=== PATIENT | male | born 1945 | race American Indian/Alaskan Native ===

== ENCOUNTER 2017-07-05 06:50 | Emergency (ER) | payer MEDICARE ==
[2017-07-05] MEDS ORDERED: NACL 0.9% 1000 ML 1,000 ML ONE (07:09)
[2017-07-05] MEDS ORDERED: NACL 0.9% 1000 ML 1,000 ML IV ONE ×3 (07:17→10:09)
[2017-07-05] MEDS ORDERED: CARDIZEM/D5W 100MG/100ML 100 MG/100 ML BAG IV ONE (07:18)
[2017-07-05] MEDS ORDERED: CARDIZEM IV ONE (07:18)
--- NOTE | 2017-07-05 07:24 | Emergency Department Report ---
ED General Adult HPI - General Chief complaint: Weakness Stated complaint: AMS Time Seen by Provider: 07/05/17 07:16 Source: patient Mode of arrival: Stretcher Limitations: No Limitations - History of Present Illness Initial comments: Patient is 71 years old -[place] male brought into the ER via EMS with symptoms of generalized weakness and palpitation. Patient stated that symptoms started this morning. EMS reported that initial blood pressure was 80/55, he was given 1 L of fluids by EMS his blood pressure went to 112/60. EKG in the ER showed SVT was a heart rate of 155. Patient was given adenosine with transient response heart rate go down to 90s and some back again to 150. Patient was recently discharged from [facility] for acute pancreatitis. Patient does have a baked tube in place. He denied any fever or vomiting. -: This morning - Related Data Home Medications Medication Instructions Recorded Confirmed Last Taken HYDROcodone/APAP 5-325 [Marion 1 each PO Q4HR PRN 07/05/17 07/05/17 07/04/17 5/325] Lipase/Protease/Amylase [Zenpep Dr 1 each PO TIDWM 07/05/17 07/05/17 07/04/17 25,000 Units Capsule] Metoprolol [Lopressor] 25 mg PO Q12H 07/05/17 07/05/17 07/04/17 Omeprazole 40 mg PO QDAY 07/05/17 07/05/17 07/04/17 traMADol [Ultram] 50 mg PO Q6HR PRN 07/05/17 07/05/17 07/04/17 Allergies Allergy/AdvReac Type Severity Reaction Status Date / Time No Known Allergies Allergy Verified 07/05/17 07:18 ED Review of Systems ROS: Stated complaint: AMS Other details as noted in HPI Comment: All other systems reviewed and negative Constitutional: denies: chills, fever Respiratory: denies: cough, orthopnea, shortness of breath, SOB with exertion Cardiovascular: palpitations. denies: chest pain, dyspnea on exertion Gastrointestinal: abdominal pain. denies: nausea, vomiting, diarrhea, constipation Musculoskeletal: denies: back pain Neurological: weakness (generalized weakness). denies: headache, numbness, paresthesias, confusion ED Past Medical Hx - Past Medical History Previous Medical History?: Yes Additional medical history: pancreatitis - Surgical History Past Surgical History?: Yes Additional Surgical History: G-tube placement - Social History Smoking Status: Former Smoker Substance Use Type: None - Medications Home Medications: Home Medications Medication Instructions Recorded Confirmed Last Taken Type HYDROcodone/APAP 5-325 [Marion 1 each PO Q4HR PRN 07/05/17 07/05/17 07/04/17 History 5/325] Lipase/Protease/Amylase [Zenpep Dr 1 each PO TIDWM 07/05/17 07/05/17 07/04/17 History 25,000 Units Capsule] Metoprolol [Lopressor] 25 mg PO Q12H 07/05/17 07/05/17 07/04/17 History Omeprazole 40 mg PO QDAY 07/05/17 07/05/17 07/04/17 History traMADol [Ultram] 50 mg PO Q6HR PRN 07/05/17 07/05/17 07/04/17 History ED Physical Exam - General Limitations: No Limitations General appearance: alert, in distress - Head Head exam: Present: atraumatic, normocephalic, normal inspection - Eye Eye exam: Present: normal appearance, PERRL - ENT ENT exam: Present: mucous membranes dry - Neck Neck exam: Present: normal inspection, full ROM. Absent: tenderness, meningismus, lymphadenopathy - Respiratory Respiratory exam: Present: normal lung sounds bilaterally - Cardiovascular Cardiovascular Exam: Present: tachycardia. Absent: systolic murmur, diastolic murmur - GI/Abdominal GI/Abdominal exam: Present: tenderness, guarding, rigid - Extremities Exam Extremities exam: Present: normal inspection. Absent: pedal edema - Back Exam Back exam: Present: normal inspection. Absent: CVA tenderness (R), CVA tenderness (L) - Neurological Exam Neurological exam: Present: alert, oriented X3, CN II-XII intact, reflexes normal. Absent: motor sensory deficit - Skin Skin exam: Present: warm, dry, intact ED Course Vital Signs 07/05/17 07/05/17 07/05/17 07:04 08:15 08:30 Temperature 98.1 F Pulse Rate 150 H 134 H 134 H Respiratory 18 24 34 H Rate Blood Pressure 103/58 134/111 O2 Sat by Pulse 99 100 100 Oximetry 07/05/17 07/05/17 07/05/17 08:46 08:52 09:24 Temperature Pulse Rate 132 H 143 H 138 H Respiratory 17 27 H Rate Blood Pressure 111/77 116/72 O2 Sat by Pulse 100 Oximetry 07/05/17 07/05/17 07/05/17 09:30 09:45 10:00 Temperature Pulse Rate 138 H 136 H 136 H Respiratory 30 H 28 H 26 H Rate Blood Pressure 96/59 100/61 100/61 O2 Sat by Pulse Oximetry 07/05/17 07/05/17 07/05/17 10:15 10:30 11:44 Temperature Pulse Rate 135 H 135 H 135 H Respiratory 28 H 26 H 30 H Rate Blood Pressure 94/60 94/60 94/59 O2 Sat by Pulse Oximetry 07/05/17 07/05/17 07/05/17 11:45 12:00 12:15 Temperature Pulse Rate 139 H 134 H 131 H Respiratory 31 H 45 H 28 H Rate Blood Pressure 92/46 92/46 87/55 O2 Sat by Pulse 96 Oximetry 07/05/17 07/05/17 07/05/17 12:30 12:45 13:00 Temperature Pulse Rate 132 H 134 H 136 H Respiratory 32 H 33 H 35 H Rate Blood Pressure 87/55 95/55 95/55 O2 Sat by Pulse 97 100 98 Oximetry 07/05/17 07/05/17 07/05/17 13:24 13:30 13:45 Temperature Pulse Rate 133 H 133 H 134 H Respiratory 36 H 42 H 36 H Rate Blood Pressure 81/54 93/63 O2 Sat by Pulse 97 98 98 Oximetry 07/05/17 07/05/17 07/05/17 14:00 14:16 14:30 Temperature Pulse Rate 135 H 139 H 138 H Respiratory 35 H 35 H 45 H Rate Blood Pressure 106/64 98/54 80/46 O2 Sat by Pulse 99 98 Oximetry 07/05/17 07/05/17 07/05/17 14:45 15:00 15:15 Temperature Pulse Rate 131 H 135 H 135 H Respiratory 44 H 38 H 35 H Rate Blood Pressure 79/46 96/53 106/65 O2 Sat by Pulse Oximetry 07/05/17 07/05/17 07/05/17 15:30 15:45 16:00 Temperature Pulse Rate 137 H 140 H 138 H Respiratory 33 H 34 H 45 H Rate Blood Pressure 99/57 95/56 85/46 O2 Sat by Pulse 88 Oximetry 07/05/17 16:15 Temperature Pulse Rate 139 H Respiratory 33 H Rate Blood Pressure 94/51 O2 Sat by Pulse 85 Oximetry - Reevaluation(s) Reevaluation #1: 07/05/17 07/05/17 13:35 Patient stated that he is feeling better but patient is still tachycardic, IV fluids still running. Patient received Zosyn. Reevaluation #2: 07/05/17 14:20 Patient is alert oriented 3 still tachycardic. Central line placed patient is getting Levophed and IV fluid. Reevaluation #3: 07/05/17 15:37 Patient stated that he is feeling much better, blood pressure improved. I discussed with Dr. Cuellar from [facility], he accepted the patient to be transferred to [facility]. 07/05/17 16:10 Reevaluation #4: 07/05/17 15:45 I discussed with the family the current condition of the patient and how critical it is his finding and he needs to transfer to [facility]. Patient family understand and agree to transfer patient. Reevaluation #5: 07/05/17 16:39 Discussed patient with Olive Rooney, noticed practitioner with Dr. Noel Kc inform about the patient and the possible need for emergent ERCP. She stated that she will call Dr. Noel Kc and she will call me back. - Central Line Placement Right Femoral Consent Obtained: emergent situation Time Out Performed: Yes Patient Placed on Monitor/Pulse Ox: Yes Prep: mask, gown, gloves Central Line Prep: Povidone-Iodine 1%, Chlorhexidine scrub, sterile drapes applied Local Anesthesia Used: Lidocaine 2% Amount of Anesthesia Used (mls): 5 Central Line Lumen Inserted: triple Bloods Obtained for Lab: Yes Central Line Position: good blood return, all ports aspirated, flus, sutured in place with 2-0 Dressing Applied: Tegaderm, sterile gauze/tape Patient Tolerated Procedure: well, no complications Complications: none - Intubation Time Out Performed: Yes Sedative: Etomidate Mg Given: 10 Paralytic: Succinylcholine Mg Given: 50 Laryngoscope: Tamiko Size: 4 ET Tube Size: 7.5 Tube Secured Depth (cm): 22 Tube Secured Location: lips Tube Placement Confirmation: visualized tube passing t, equal breath sounds bilat, no breath sounds over epi, confirmation by capnometr Patient Tolerated Procedure: well, no complications Intubation Complications: none ED Medical Decision Making - Lab Data Result diagrams: 07/05/17 09:10 07/05/17 09:10 - Medical Decision Making Discussed with Dr. Miller from [facility], he accepted the patient to be transferred to ICU. I am waiting for the ICU doctor to call me to discuss the patient with him. Discussed with Dr. hammond from [facility] he stated that he cannot accept the patient now because he does not have any bed at this moment. Patient started to have more difficulty breathing and his respiratory rate jumped to canine breath per minute. Patient stated that he is feeling tired and fatigued. So decision to intubate the patient is admitted. Patient intubated by me. Discussed with Dr. Rahman, he agreed to admit the patient to his service to a critical care bed. Critical Care Time: Yes Critical care time in (mins) excluding proc time.: 90 Critical care attestation.: If time is entered above; I have spent that time in minutes in the direct care of this critically ill patient, excluding procedure time. ED Disposition Clinical Impression: Septic shock, Abdominal pain, Pancreatic mass, Common bile duct (CBD) obstruction, Acute respiratory failure Disposition: DC/TX-70 ANOTHER TYPE HLTHCARE Is pt being admited?: No Condition: Stable Referrals: MCKINLEY ARAGON MD [Primary Care Provider] - 3-5 Days
--- NOTE | 2017-07-05 08:05 | XRay Report ---
PORTABLE CHEST INDICATION: Chest pain. COMPARISON: None similar at this institution. FINDINGS: Portable, frontal chest radiograph suggests prominent/mild increased markings at both lung bases and some in the right midlung zone, possibly crowding/atelectasis and/or chronic. No significant pleural effusions or CHF. Normal cardiomediastinal silhouette. EKG leads. Intact bones. CONCLUSION: Findings, as above. Please also correlate clinically and with prior chest imaging, if available. Thank you for the opportunity to participate in this patient's care.
[2017-07-05 09:34] LABS: Hematocrit 35.1 % (35.5-45.6); Hemoglobin 11.8 gm/dl (11.8-15.2); Mean Corpuscular HGB Conc 34 % (32-34); Mean Corpuscular Hemoglobin 32 pg (28-32); Mean Corpuscular Volume 95 fl (84-94); Platelet Count 319 K/mm3 (140-440); Red Blood Count 3.68 M/mm3 (3.65-5.03)
[2017-07-05 09:46] LABS: Alanine Aminotransferase 127 units/L (7-56); Albumin 2.5 g/dL (3.9-5); BUN/Creatinine Ratio 32; Blood Urea Nitrogen 32 mg/dL (9-20); Calcium 8.6 mg/dL (8.4-10.2); Hemolysis Index 80
[2017-07-05 10:00] LABS: INR 1.29 (0.87-1.13)
[2017-07-05 10:01] LABS: Partial Thromboplastin Time 34.1 Sec. (24.2-36.6)
[2017-07-05 10:33] LABS: Band Neutrophils # (Manual) 7.4 K/mm3; Basophils % (Manual) 0 % (0.0-1.8); Eosinophils % (Manual) 0 % (0.0-4.3); Total Cells Counted 100
[2017-07-05 10:34] LABS: Anisocytosis 1+
--- NOTE | 2017-07-05 12:19 | Cat Scan Report ---
CT ABDOMEN AND PELVIS WITH CONTRAST INDICATION: Abdominal pain. COMPARISON: None similar. FINDINGS: Abdomen and pelvis CT performed following intravenous administration of 100 cc of Omnipaque 300. LUNG BASES: Mild to moderate bibasilar atelectasis and minimal left pleural effusion. Coronary calcifications. Nonspecific distal esophageal wall prominence/thickening, not excluded for gastroesophageal reflux and/or hiatal hernia, amongst others. ABDOMEN: Liver enlarged to 21.2 cm in mid clavicular length. Multiple hepatic hypodensities, some indeterminate/subcentimeter while the largest as inferiorly in the right hepatic lobe measuring up to 1.8 cm, axial image 171, series 2 demonstrates somewhat ill-defined margins and measure 6HU. Right hepatic heterogeneous enhancement also noted, smaller wedge-shaped anterosuperiorly measuring approximately 3 cm, axial image 84 while the larger more inferiorly as on axial image 131 measures approximately 8.3 x 6.6 cm. Patent portal vein at the cyrus hepatis, though a nonocclusive thrombus centrally suspected as on axial series 2, images 118-125. Slight intrahepatic pneumobilia. Biliary dilatation also noted, mild intrahepatic, though greatest at the cyrus hepatis with CBD caliber estimated at 2.6 cm, axial image 139, series 2, amongst others, though subsequently appears to abruptly taper about the pancreatic head situated in the midline as on axial image 140 beyond which a CBD stent appears in place. An adjacent pancreatic duct stent also noted, beyond which an approximately 5.4 x 2.9 cm diffuse hypodense masslike appearance of the pancreas suspected involving its body and tail as on axial image 114, series 2. A peripancreatic 2.2 x 1.7 cm hypodense fluid measuring 12 HU may also be present on axial image 111, series 2 along the posterior wall of the stomach. Stomach suboptimally distended with mild exaggerated wall thickness and nonspecific surrounding hypodensity as on axial images 71-115. Minimal fluid/ascites also noted along the left paracolic gutter. Vague hypodensity also noted retroperitoneal/paraaortic as encasing the left renal vessels on axial images 104-154, amongst others. Left renal ostial calcifications. Few cyrus hepatis/gastrohepatic ligament lymphadenopathy also suspected as measuring 3.8 x 1.2 cm, axial image 121. Gallbladder not clearly identified and may be surgically absent. Grossly unremarkable spleen, adrenals and IVC. Nonaneurysmal abdominal aorta with atherosclerotic calcifications. Slight distal aortic ectasia as on axial image 162 at approximately 2.3 cm caliber. Normal right kidney. Mild left hydronephrosis with possible proximal ureteral entrapment as on axial images 123-140. Left perinephric stranding. Nonopacified GI tract evaluation limited, though grossly nonobstructive. A percutaneous G-J-tube creates some artifact. PELVIS: Moderate rectosigmoid stool. Grossly unremarkable urinary bladder, seminal vesicles and prostate. No free fluid or significant adenopathy. Mid to lower lumbar degenerative changes from L3-L5, including moderate to severe disc narrowing, vacuum phenomenon and degenerative spurring. Lumbar levoscoliosis apex about L3 as well. CONCLUSION: 1. Biliary dilatation, minimal pneumobilia, hepatomegaly, heterogeneous hepatic enhancement with multiple hypodensities and questionable early right hepatic lobe abscesses formation in this patient with hypodense, unresectable pancreatic mass/neoplasm not excluded, as detailed above. Small peripancreatic hypodense fluid collection as also perigastric and retroperitoneal vague hypodensity also noted, presumed neoplastic/metastatic with left proximal ureteral entrapment/hydronephrosis as well. Pancreatic and biliary stents also noted. Lymphoma may simulate the above findings. Pancreatitis is a less favored diagnosis at this time, given overall CT appearance. Please correlate. 2. A nonocclusive thrombus within the main portal vein centrally not excluded. 3. Bibasilar atelectasis/consolidation and minimal left pleural fluid. 4. Various other findings, as above. Please also correlate clinically and with prior relevant imaging, if available. I phoned the above results to Dr. Nagy in the ER, 11 AM, 07/05/2017. Thank you for the opportunity to participate in this patient's care.
[2017-07-05] MEDS: LEVOPHED DRIP 4 MG/NS 250 ML 4 MG/250 ML BAG IV SCH ×2 (13:34→21:00)
[2017-07-05] MEDS: ZOSYN/NS 3.375GM/50ML 3.375 GM/50 ML BAG IV SCH ×2 (14:00→18:50)
[2017-07-05] MEDS ORDERED: AMIDATE IV ONE (16:46)
[2017-07-05] MEDS ORDERED: QUELICIN ONE (16:46)
[2017-07-05] MEDS ORDERED: DIPRIVAN 10 MG/ML 1,000 MG/100 ML BOTTLE IV SCH (17:00)
[2017-07-05] MEDS ORDERED: VASELINE LIP THERAPY TP PRN (17:00)
[2017-07-05] MEDS ORDERED: ARTIFICIAL TEARS OPHTH OINT OU PRN (17:00)
[2017-07-05] MEDS ORDERED: DIPRIVAN 10 MG/ML 1,000 MG/100 ML BOTTLE IV ONE (17:05)
[2017-07-05 17:06] LABS: Chol/HDL Ratio 22.5 %
[2017-07-05] MEDS ORDERED: VANCOMYCIN/NS 1 GM/250 ML 1 GM/250 ML BAG IV SCH (18:22)
[2017-07-05] MEDS ORDERED: DIFLUCAN 200 ML IV SCH (19:00)
--- NOTE | 2017-07-05 19:06 | XRay Report ---
FINAL REPORT EXAM: XR CHEST 1V AP HISTORY: sob TECHNIQUE: Chest, portable PRIORS: None. FINDINGS: There is bilateral lower lobe airspace disease which is concerning for infiltrates. There is no pneumothorax seen. There is no pleural effusion. There is no cardiomegaly or vascular congestion. IMPRESSION: Bilateral lower lobe infiltrates.
[2017-07-05] MEDS ORDERED: fentaNYL DRIP Premix 2,000 MCG/100 ML BAG IV SCH (20:30)
[2017-07-05 22:00] VITALS: BP 86/56
== END 2017-07-05 23:10 | disposition other institution (70) ==
LOC: ED 06:50
DX: A41.9 Sepsis, unspecified organism (principal); R65.21 Severe sepsis with septic shock; K86.89 Other specified diseases of pancreas; K83.1 Obstruction of bile duct; J96.90 Respiratory failure, unspecified, unspecified whether with hypoxia or hypercapnia
CPT/HCPCS: 31500; 36415; 36556; 71045; 74177; 80053; 80061; 82140; 82803; 83690; 84484; 85007; 85025; 85610; 85730; 87040; 87070; 87076; 87186; 87205; 93005; 93010; 96361; 96365; 96366; 96367; 96368; 96375; 99291; 99292; J0153; J0330; J1450; J2543; J2704; J3010; J3370; J7030; Q9967